=== PATIENT | female | born 1955 | race Caucasian/White ===

== ENCOUNTER 2025-02-22 07:29 | Emergency (ER) | payer BC, MEDICARE, OTHER ==
[2025-02-22 08:04] LABS: BASOPHILS ABSOLUTE AUTO 0.02 10^3/uL (0.00-0.10); BASOPHILS PERCENT AUTO 0.3 % (0.0-1.0); EOSINOPHILS ABSOLUTE AUTO 0.11 10^3/uL (0.10-0.30); EOSINOPHILS PERCENT AUTO 1.8 % (1.0-3.0); IMMATURE GRAN ABSOLUTE AUTO 0.01 10^3/uL (0.00-0.04); IMMATURE GRAN PERCENT AUTO 0.2 % (0.0-0.4); LYMPHOCYTES ABSOLUTE AUTO 2.42 10^3/uL (1.00-4.00); LYMPHOCYTES PERCENT AUTO 39.2 % (20.0-40.0); MEAN PLATELET VOLUME 9.8 fL (7.4-10.4); MONOCYTES ABSOLUTE AUTO 0.49 10^3/uL (0.10-0.80); MONOCYTES PERCENT AUTO 7.9 % (2.0-8.0); NEUTROPHILS ABSOLUTE AUTO 3.12 10^3/uL (2.50-7.00); NEUTROPHILS PERCENT AUTO 50.6 % (50.0-70.0); PLATELET COUNT,PLT 376 10^3/uL (150-400); RED BLOOD CELL COUNT 4.85 10^6/uL (3.80-5.50); RED CELL DISTRIBUTION WIDTH 13.0 % (11.5-14.5); WHITE BLOOD CELL COUNT,WBC 6.17 10^3/uL (5.00-10.00)
[2025-02-22 08:13] LABS: ALANINE AMINOTRANSFERASE,ALT 70.0 U/L (14-63); ASPARTATE AMNIOTRANSFERASE,AST 32.0 U/L (15-37); BILIRUBIN TOTAL 0.5 mg/dL (0.2-1.0); BLOOD UREA NITROGEN,BUN 12.0 mg/dL (7-18); CARBON DIOXIDE,CO2 30.7 mmol/L (21.0-32.0); CHLORIDE,CL 100.0 mmol/L (98-107); CREATININE 0.7 mg/dL (0.51-1.17); EST CRCL DRUG DOSING (CG) 53.71 mL/min; GLUCOSE RANDOM 179.0 mg/dL (70-140); POTASSIUM,K 3.5 mmol/L (3.5-5.1); PROTEIN TOTAL,TP 7.5 g/dL (6.4-8.2); SODIUM,NA 139.0 mmol/L (136-145)
[2025-02-22 08:15] LABS: ESTIMATED GFR 93.0 mL/min (>=60)
== END 2025-02-22 08:48 | disposition home or self-care (01) ==
LOC: KA.ED 07:29
DX: R42 Dizziness and giddiness (principal); R11.0 Nausea; R73.9 Hyperglycemia, unspecified; Z79.899 Other long term (current) drug therapy
CPT/HCPCS: 36415; 80053; 85025; 99284